=== PATIENT | female | born 1945 | race Caucasian/White ===

== ENCOUNTER 2020-10-21 17:02 | Inpatient (IN) | payer MEDICARE, OTHER ==
[~2020-10-21] VITALS: Ht 160 cm; Wt 62.6 kg
[2020-10-21 18:07] LABS: HEMOGLOBIN 11.1 gm/dl (12.3-15.3); RED BLOOD COUNT 4.04 M/UL (4.00-5.10); WHITE BLOOD COUNT 14.5 K/UL (4.5-11.0)
[2020-10-21 18:41] LABS: BUN/CREATININE RATIO 20 (0-10)
[2020-10-21] MEDS ORDERED: MULTAQ 400 MG400 MG PO (20:52)
[2020-10-21] MEDS ORDERED: TRENTAL 400 MG400 MG PO (21:01)
[2020-10-21] MEDS ORDERED: ALPRAZOLAM1 MG PO (21:02)
[2020-10-21] MEDS ORDERED: TRAMADOL HCL50 MG PO (21:03)
[2020-10-21] MEDS ORDERED: PRADAXA 150 MG150 MG PO (21:04)
[2020-10-21] MEDS ORDERED: VENLAFAXINE HCL75 MG PO (21:05)
[2020-10-21] MEDS ORDERED: TRESIBA FL100 UNIT/1 SQ (21:05)
[2020-10-21] MEDS ORDERED: FOSAMAX70 MG PO (21:09)
[2020-10-21] MEDS ORDERED: ASPIRIN EC81 MG PO (21:10)
[2020-10-21] MEDS ORDERED: BUSPIRONE HCL5 MG PO (21:12)
[2020-10-21] MEDS ORDERED: ATORVASTATIN CA40 MG PO (21:12)
[2020-10-21] MEDS ORDERED: FENOFIBRATE160 MG PO (21:13)
[2020-10-21] MEDS ORDERED: FERROUS SULFAT325 M2 PO (21:15)
[2020-10-21] MEDS ORDERED: FLOVENT DISKUS50 MCG INH (21:16)
[2020-10-21] MEDS ORDERED: FOLIC ACID 1 MG1 MG PO (21:17)
[2020-10-21] MEDS ORDERED: B-COMPLEX PLU400 MCG PO (21:18)
[2020-10-21] MEDS ORDERED: PRINIVIL20 MG PO (21:18)
[2020-10-21] MEDS ORDERED: METFORMIN HCL1000 MG PO (21:19)
[2020-10-21] MEDS ORDERED: ONE DAILY WOME1 EAC1 PO (21:20)
[2020-10-21] MEDS ORDERED: PRIMIDONE50 MG PO (21:28)
[2020-10-21] MEDS ORDERED: VENTOLIN HFA 66.7 GM INH (21:29)
[2020-10-21] MEDS ORDERED: VITAMIN C500 M2 PO (21:30)
[2020-10-21] MEDS ORDERED: VITAMIN B-12500 MCG PO (21:30)
[2020-10-21] MEDS ORDERED: ISO D3 2,000 U1 EACH PO (21:31)
[2020-10-21] MEDS ORDERED: ZYRTEC10 MG PO (21:31)
[2020-10-22 04:26] LABS: HEMOGLOBIN 9.9 gm/dl (12.3-15.3); WHITE BLOOD COUNT 13.1 K/UL (4.5-11.0)
[2020-10-22 04:28] LABS: RED BLOOD COUNT 3.59 M/UL (4.00-5.10)
[2020-10-22 05:08] LABS: BUN/CREATININE RATIO 24 (0-10)
[2020-10-23 04:41] LABS: HEMOGLOBIN 9.7 gm/dl (12.3-15.3); RED BLOOD COUNT 3.64 M/UL (4.00-5.10)
[2020-10-23 04:44] LABS: WHITE BLOOD COUNT 18.7 K/UL (4.5-11.0)
[2020-10-23 05:15] LABS: BUN/CREATININE RATIO 30 (0-10)
[2020-10-23 15:42] LABS: BUN/CREATININE RATIO 45 (0-10)
[2020-10-24 04:01] LABS: HEMOGLOBIN 10.2 gm/dl (12.3-15.3); RED BLOOD COUNT 3.93 M/UL (4.00-5.10); WHITE BLOOD COUNT 16.5 K/UL (4.5-11.0)
[2020-10-24 04:32] LABS: BUN/CREATININE RATIO 64 (0-10)
[2020-10-24 10:10] LABS: HBSAG SCREEN Negative (Negative); HEP A AB, IGM Negative (Negative); HEP B CORE AB, IGM Negative (Negative); HEP C VIRUS AB <0.1 (0.0-0.9)
[2020-10-25 02:51] LABS: HEMOGLOBIN 10.5 gm/dl (12.3-15.3); RED BLOOD COUNT 4.01 M/UL (4.00-5.10)
[2020-10-25 02:57] LABS: WHITE BLOOD COUNT 12.2 K/UL (4.5-11.0)
[2020-10-25 03:30] LABS: BUN/CREATININE RATIO 48 (0-10)
--- NOTE | 2020-10-25 04:18 | NUR ---
PTS HR DROPPED TO 38 PT IS SLEEPING BUT AROUSABLE. SHE DENIES ANY SYMPTOMS. POTASSIUM LEVEL IS 3.0. ATTEMPTED TO CALL DR GIPSON NO ANSWER.
[2020-10-27 08:05] LABS: BUN/CREATININE RATIO 35 (0-10)
[2020-10-27] MEDS ORDERED: FERROUS SULFAT325 M2 PO (12:15)
[2020-10-27 12:18] LABS: HEMOGLOBIN 11.3 gm/dl (12.3-15.3); RED BLOOD COUNT 4.42 M/UL (4.00-5.10); WHITE BLOOD COUNT 12.8 K/UL (4.5-11.0)
[2020-10-28 04:10] LABS: BUN/CREATININE RATIO 30 (0-10)
[2020-10-29 05:29] LABS: HEMOGLOBIN 10.9 gm/dl (12.3-15.3); RED BLOOD COUNT 3.99 M/UL (4.00-5.10); WHITE BLOOD COUNT 11.9 K/UL (4.5-11.0)
[2020-10-29 06:03] LABS: BUN/CREATININE RATIO 22 (0-10)
--- NOTE | 2020-10-29 13:01 | NUR ---
AT APPROX 0915 THIS AM CALLED FROM TELEMETRY PATIENT TACHY AT 180. SPOKE WITH MD PURCELL WHO ORDERED 10MG METOPROLOL IVP. MEDICATION GIVEN, THEN PATIENT STARTED ON CARDIZEM PER MD ORDER. AT 1230 PATIENT RATE AT 52, IV CARDIZEM STOPPED. WILL CONTINUE TO MONITOR
[2020-10-29 19:56] LABS: BUN/CREATININE RATIO 25 (0-10)
[2020-10-30 03:30] LABS: BUN/CREATININE RATIO 24 (0-10)
[2020-10-31 04:00] LABS: HEMOGLOBIN 10.8 gm/dl (12.3-15.3); RED BLOOD COUNT 3.98 M/UL (4.00-5.10)
[2020-10-31 04:23] LABS: BUN/CREATININE RATIO 22 (0-10)
[2020-11-01 04:02] LABS: BUN/CREATININE RATIO 18 (0-10)
[2020-11-01] MEDS ORDERED: ALDACTONE 25MG25 MG PO (17:01)
[2020-11-01] MEDS ORDERED: TRESIBA FL100 UNIT/1 SQ (17:01)
[2020-11-01] MEDS ORDERED: MAG-OX 400 TAB400 MG PO (17:01)
[2020-11-01] MEDS ORDERED: K-DUR TAB 20 M20 MEQ PO (17:07)
[2020-11-01] MEDS ORDERED: LOPRESSOR 50 MG50 MG PO (17:07)
[2020-11-02 03:55] LABS: BUN/CREATININE RATIO 22 (0-10)
--- NOTE | 2020-11-02 12:53 | NUR ---
DR. ESTRADA INFORMED OF PT'S DECREASED HR (40'S) LIFEVEST IS ON PATIENT, PRE-PARING FOR DISCHARGE. DISCUSSED HR AND MEDICATION WITH DR. WEBB - HE IS OK WITH PATIENT BEING DISCHARGED WITH CONTINUED AMOUNT OF LOPRESSOR 100MG BID AND HR IN 40'S - DR ESTRADA MADE AWARE - TW
== END 2020-11-02 15:14 | disposition home health service (06) | DRG 308 ==
LOC: ER1 17:02 → PROG CARE 18:59 → CDU 18:59 → PROG CARE 10-22 20:30
PROVIDERS: Internal Medicine; Physician Assistant; ADMIT Internal Medicine
PROC: B24BZZ4 Ultrasonography of Heart with Aorta, Transesophageal (ICD-10-PCS; principal; 2020-10-26)
DX: I48.0 Paroxysmal atrial fibrillation (principal); G93.41 Metabolic encephalopathy; J69.0 Pneumonitis due to inhalation of food and vomit; N30.00 Acute cystitis without hematuria; R44.3 Hallucinations, unspecified; Z20.822 Contact with and (suspected) exposure to COVID-19; J44.9 Chronic obstructive pulmonary disease, unspecified; E11.40 Type 2 diabetes mellitus with diabetic neuropathy, unspecified; F03.90 Unspecified dementia, unspecified severity, without behavioral disturbance, psychotic disturbance, mood disturbance, and anxiety; F17.210 Nicotine dependence, cigarettes, uncomplicated; F41.9 Anxiety disorder, unspecified; R00.1 Bradycardia, unspecified; M81.0 Age-related osteoporosis without current pathological fracture; F32.9 Major depressive disorder, single episode, unspecified; I25.10 Atherosclerotic heart disease of native coronary artery without angina pectoris; E87.6 Hypokalemia; E83.42 Hypomagnesemia; K73.9 Chronic hepatitis, unspecified; I47.2 Ventricular tachycardia; I95.9 Hypotension, unspecified; K72.90 Hepatic failure, unspecified without coma; I44.7 Left bundle-branch block, unspecified; E78.5 Hyperlipidemia, unspecified; I27.20 Pulmonary hypertension, unspecified; I08.1 Rheumatic disorders of both mitral and tricuspid valves; I25.5 Ischemic cardiomyopathy; Z95.5 Presence of coronary angioplasty implant and graft; Z85.3 Personal history of malignant neoplasm of breast; Z79.01 Long term (current) use of anticoagulants; Z95.2 Presence of prosthetic heart valve; Z87.440 Personal history of urinary (tract) infections; Z88.5 Allergy status to narcotic agent; Z91.041 Radiographic dye allergy status; Z91.040 Latex allergy status; Z79.82 Long term (current) use of aspirin; Z79.4 Long term (current) use of insulin; Z88.8 Allergy status to other drugs, medicaments and biological substances; Z88.6 Allergy status to analgesic agent; Z98.51 Tubal ligation status; Z90.710 Acquired absence of both cervix and uterus; Z95.1 Presence of aortocoronary bypass graft
CPT/HCPCS: ECHO; 36415; 70450; 71045; 76705; 78579; 80053; 80074; 80076; 81001; 82140; 82550; 82553; 82962; 83036; 83605; 83690; 83735; 83874; 83880; 84132; 84439; 84443; 84484; 85025; 85027; 85379; 85610; 87040; 87086; 93005; 93306; 94760; 96374; 96376; 97110; 97161; 97166; 99285; A9540; J0132; J0696; J1160; J2405; J2543; J3475; J3480; J7030; J7070; Q9967; U0002